=== PATIENT | female | born 1945 | race Caucasian/White ===

== ENCOUNTER 2019-06-19 14:37 | Outpatient (RCR) | payer BC, MEDICARE | END 2019-06-30 | disposition home or self-care (01) | LOC: WCC 14:37 | DX: H91.22 Sudden idiopathic hearing loss, left ear (principal); Z79.899 Other long term (current) drug therapy ==

== ENCOUNTER 2019-06-19 16:16 | Outpatient (RCR) | payer SELFPAY | END 2019-06-30 | disposition home or self-care (01) | LOC: WCC 16:16 | DX: H91.22 Sudden idiopathic hearing loss, left ear (principal); Z79.899 Other long term (current) drug therapy | CPT/HCPCS: G0277 ×4 ==